=== PATIENT | female | born 1965 ===

== ENCOUNTER 2021-12-18 09:45 | Emergency (ER) | payer SELFPAY ==
[2021-12-18 11:34] VITALS: BP 107/59
--- NOTE | 2021-12-18 12:18 | Emergency Department Report ---
ED General Adult HPI - General Chief complaint: Urogenital-Female Stated complaint: LUMP IN R BREAST Time Seen by Provider: 12/18/21 12:02 Source: patient Mode of arrival: Ambulatory Limitations: No Limitations - History of Present Illness Initial comments: A 56-year-old female smoker presents to the emergency department emale assessment complaining of noticing a mass to the lump to her right breast about 3 to 4 days ago of unknown etiology she reports no nipple discharge, no fever, chills, sweats. No weight loss, no known history of family history of of breast cancers. -: Gradual Severity scale (0 -10): 0 Consistency: constant Improves with: none Worsens with: none Associated Symptoms: denies other symptoms Treatments Prior to Arrival: none ED Review of Systems ROS: Stated complaint: LUMP IN R BREAST Other details as noted in HPI Comment: All other systems reviewed and negative ED Physical Exam - General Limitations: No Limitations General appearance: alert, in no apparent distress - Head Head exam: Present: atraumatic, normocephalic - Eye Eye exam: Present: normal appearance, PERRL, EOMI - ENT ENT exam: Present: normal exam, normal orophraynx, mucous membranes moist - Neck Neck exam: Present: normal inspection - Respiratory Respiratory exam: Present: normal lung sounds bilaterally, other (Heart irregular light mass to the right breast no orange peeling no dimpling no nipple discharge no tenderness to the tail of Vaughan. No skin discoloration.). Absent: respiratory distress - Cardiovascular Cardiovascular Exam: Present: regular rate, normal rhythm. Absent: systolic murmur, diastolic murmur, rubs, gallop - GI/Abdominal GI/Abdominal exam: Present: soft, normal bowel sounds - Extremities Exam Extremities exam: Present: normal inspection, full ROM, normal capillary refill - Back Exam Back exam: Present: normal inspection. Absent: CVA tenderness (R), CVA tenderness (L) - Neurological Exam Neurological exam: Present: alert, oriented X3, CN II-XII intact, normal gait - Psychiatric Psychiatric exam: Present: normal affect, normal mood - Skin Skin exam: Present: warm, dry, intact, normal color. Absent: rash ED Course Vital Signs 12/18/21 11:28 Temperature 97.4 F L Pulse Rate 66 Blood Pressure 107/59 [Left] O2 Sat by Pulse 97 Oximetry Critical care attestation.: If time is entered above; I have spent that time in minutes in the direct care of this critically ill patient, excluding procedure time. ED Disposition Clinical Impression: Breast mass, right Disposition: 01 HOME / SELF CARE / HOMELESS Is pt being admited?: No Does the pt Need Aspirin: No Condition: Stable Instructions: Breast Cancer, Female, Breast Self-Awareness, Fibroadenoma Referrals: [facility], [facility] [Other] - 3-5 Days DEMARIO MINAYA MD [Staff Physician] - 3-5 Days
== END 2021-12-18 12:46 | disposition home or self-care (01) ==
LOC: ED 09:45
DX: N64.4 Mastodynia (principal)
CPT/HCPCS: 99282